=== PATIENT | female | born 1955 | race Caucasian/White ===

== ENCOUNTER 2018-01-29 11:49 | Emergency (ER) | payer OTHER ==
[2018-01-29 11:49] VITALS: TEMP 36.9
[2018-01-29 11:55] VITALS: O2SAT 97
[2018-01-29] MEDS ORDERED: SODIUM CHLORIDE 0.9% 1000ML 1,000 ML IV STA (11:57)
--- NOTE | 2018-01-29 12:00 | EMERGENCY ROOM VISIT NOTE ---
History Report prepared by Scribselena: Violeta Gamez Under the Supervision of: Dr. Yaniv Nguyen M.D. First contact with patient: 11:50 Chief Complaint: CARDIAC ASSESSMENT Stated Complaint: CARDIAC ASSESSMENT History of Present Illness The patient is a 62 year old white female with a past medical history of hyperlipidemia who presents to the ED with a cc of intermittent palpitations beginning 6 days [employer]. Positive productive cough with yellow mucous, chest pain, shortness of breath. Negative nausea, vomiting, diarrhea, recent sick contacts. She states she woke up at 1000 with her "heart racing", so she called EMS. She reports she took a Laxative last night, even though she had 3 BM's yesterday, and is unsure if that's related to her symptoms. She notes her doctor recently placed her on Lasix for lower extremity swelling. The patient denies any past history of DVT or PE. She admits to a history of hypertension and states she likes to take "herbal medicines" and stay "all natural". Source of History: patient Onset: 6 days [employer] Position: chest Timing: intermittent Associated Symptoms: + cough, + chest pain, + SOB, No nausea, No vomiting, No diarrhea Review of Systems See HPI for pertinent positives and negatives. A total of ten systems were reviewed and were otherwise negative. Past Medical & Surgical Medical Problems: (1) Hyperlipidemia Social History Alcohol Use: none Drug Use: none Marital Status: Housing Status: lives with family Occupation Status: retired Current/Historical Medications Scheduled Albuterol Sulf (Proventil 0.083% 2.5MG/3ML), 2.5 MG INH QID Atenolol (Tenormin), 50 MG PO QD Furosemide (Lasix), 20 MG PO DIRECTED Scheduled PRN Diazepam (Valium), 5 MG PO QID PRN for Anxiety Allergies Coded Allergies: Latex (Verified Allergy, Intermediate, blisters, 01/29/18) Morphine (Verified Allergy, Intermediate, breathing difficulty, 01/29/18) Adhesives (Verified Adverse Reaction, Mild, rash, 01/29/18) Physical Exam Vital Signs Date Time Temp Pulse Resp B/P (MAP) Pulse Ox O2 Delivery O2 Flow Rate FiO2 01/29/18 13:33 86 18 155/57 96 Room Air 01/29/18 13:01 107 18 171/94 95 Room Air 01/29/18 12:28 98 15 162/90 94 Room Air 01/29/18 12:08 107 155/113 95 Room Air 01/29/18 12:01 95 Room Air 01/29/18 12:01 116 175/90 95 Room Air 01/29/18 11:55 97 Room Air 01/29/18 11:55 123 01/29/18 11:49 36.9 126 18 214/87 96 Room Air Physical Exam GENERAL: Awake, alert, well-appearing, NAD, wearing orange tinted glasses HENT: Normocephalic, atraumatic. EYES: Normal conjunctiva. Sclera non-icteric. NECK: Supple. No nuchal rigidity. FROM. RESPIRATORY: CTAB, no rhonchi, wheezing, crackles CARDIAC: Tachycardic heart rate, regular rhythm, no MRG ABDOMEN: Soft, NTND, BS+ MSK: No chest wall TTP, no LE edema NEURO: GCS 15, CN 2-12 intact, moves all 4s on command SKIN: No rash or jaundice noted. Medical Decision & Procedures ER Provider Diagnostic Interpretation: Radiology results as stated below per my review and radiologist interpretation: CHEST ONE VIEW PORTABLE CLINICAL HISTORY: tachycardia tachycardia. Cardiac arrhythmia. COMPARISON STUDY: No previous studies for comparison. FINDINGS: The bones soft tissues and hemidiaphragms are normal. The cardiomediastinal silhouette is normal. The lungs are clear. The pulmonary vasculature is normal. IMPRESSION: Negative chest. The above report was generated using voice recognition software. It may contain grammatical, syntax or spelling errors. Electronically signed by: Joseph Thorne M.D. 01/29/2018 1:25 PM Dictated Date/Time: 01/29/2018 1:24 PM Laboratory Results 01/29/18 11:20 Red Blood Count 5.16, Mean Corpuscular Volume 81.4, Mean Corpuscular Hemoglobin 27.3, Mean Corpuscular Hemoglobin Concent 33.6, Mean Platelet Volume 9.7, Neutrophils (%) (Auto) 46.9, Lymphocytes (%) (Auto) 35.7, Monocytes (%) (Auto) 8.6, Eosinophils (%) (Auto) 8.3, Basophils (%) (Auto) 0.3, Neutrophils # (Auto) 3.10, Lymphocytes # (Auto) 2.36, Monocytes # (Auto) 0.57, Eosinophils # (Auto) 0.55, Basophils # (Auto) 0.02 01/29/18 11:20 Test 01/29/18 11:20 01/29/18 12:10 White Blood Count 6.61 K/uL (4.8-10.8) Red Blood Count 5.16 M/uL (4.2-5.4) Hemoglobin 14.1 g/dL (12.0-16.0) Hematocrit 42.0 % (37-47) Mean Corpuscular Volume 81.4 fL (80-100) Mean Corpuscular Hemoglobin 27.3 pg (25-34) Mean Corpuscular Hemoglobin Concent 33.6 g/dl (32-36) Platelet Count 187 K/uL (130-400) Mean Platelet Volume 9.7 fL (7.4-10.4) Neutrophils (%) (Auto) 46.9 % Lymphocytes (%) (Auto) 35.7 % Monocytes (%) (Auto) 8.6 % Eosinophils (%) (Auto) 8.3 % Basophils (%) (Auto) 0.3 % Neutrophils # (Auto) 3.10 K/uL (1.4-6.5) Lymphocytes # (Auto) 2.36 K/uL (1.2-3.4) Monocytes # (Auto) 0.57 K/uL (0.11-0.59) Eosinophils # (Auto) 0.55 K/uL (0-0.5) Basophils # (Auto) 0.02 K/uL (0-0.2) RDW Standard Deviation 41.0 fL (36.4-46.3) RDW Coefficient of Variation 13.6 % (11.5-14.5) Immature Granulocyte % (Auto) 0.2 % Immature Granulocyte # (Auto) 0.01 K/uL (0.00-0.02) Prothrombin Time 10.5 SECONDS (9.0-12.0) Prothromb Time International Ratio 1.0 (0.9-1.1) Activated Partial Thromboplast Time 29.9 SECONDS (21.0-31.0) Partial Thromboplastin Ratio 1.2 Anion Gap 11.0 mmol/L (3-11) Estimated GFR () 93.1 Estimated GFR (Non- 80.3 BUN/Creatinine Ratio 15.1 (10-20) Calcium Level 9.1 mg/dl (8.5-10.1) Magnesium Level 1.8 mg/dl (1.8-2.4) Total Bilirubin 0.4 mg/dl (0.2-1) Direct Bilirubin < 0.1 mg/dl (0-0.2) Aspartate Amino Transf (AST/SGOT) 16 U/L (15-37) Alanine Aminotransferase (ALT/SGPT) 26 U/L (12-78) Alkaline Phosphatase 122 U/L (45-117) Total Creatine Kinase 30 U/L (26-192) Troponin I < 0.015 ng/ml (0-0.045) Total Protein 7.2 gm/dl (6.4-8.2) Albumin 3.1 gm/dl (3.4-5.0) Lipase 94 U/L (73-393) Thyroid Stimulating Hormone (TSH) < 0.005 uIu/ml (0.300-4.500) Free Thyroxine 2.39 ng/dl (0.80-1.60) Urine Color YELLOW Urine Appearance CLEAR (CLEAR) Urine pH 5.0 (4.5-7.5) Urine Specific [place] 1.008 (1.000-1.030) Urine Protein NEG (NEG) Urine Glucose (UA) NEG (NEG) Urine Ketones NEG (NEG) Urine Occult Blood NEG (NEG) Urine Nitrite NEG (NEG) Urine Bilirubin NEG (NEG) Urine Urobilinogen NEG (NEG) Urine Leukocyte Esterase NEG (NEG) Laboratory results reviewed by me Medications Administered Medications (Trade) Dose Ordered Sig/Derek Route Start Time Stop Time Status Last Admin Dose Admin Sodium Chloride 1,000 ml @ 999 mls/hr Q1H1M STAT IV 01/29/18 11:57 01/29/18 12:57 DC 01/29/18 11:57 999 MLS/HR Atenolol (Tenormin Tab) 50 mg NOW ONCE PO 01/29/18 13:00 01/29/18 13:01 DC 01/29/18 12:58 50 MG Potassium Chloride (Klor-Con Tab) 40 meq NOW STAT PO 01/29/18 12:56 01/29/18 12:57 DC 01/29/18 13:07 40 MEQ ECG Per My Interpretation Indication: palpitations Rate (beats per minute): 121 Rhythm: sinus tachycardia Findings: other (normal intervals, normal axis, no STS changes or TWI) Change: 2nd EKG on 01/29/18: Sinus Tachycardia rate of 108, normal intervals, no STS changes or TWI. ED Course 1151: The patient was evaluated in room C9. A complete history and physical exam was performed. 1246: I reevaluated the patient. I told her that her symptoms are likely related to her thyroid. We will administer a low dose Beta suleiman and have Case Management speak with her as she does not have a current Primary Care Physician. 0130: I reevaluated the patient. She is resting comfortably. I discussed her discharge instructions and she verbalized complete understanding and agreement. Medical Decision The patient is a 62 year old white female with a past medical history of hyperlipidemia who presents to the ED with a cc of intermittent palpitations beginning earlier this week. Triage Nursing notes reviewed. The patient's presentation and history were concerning for palpitations. Differential diagnosis: Etiologies such as premature contractions, electrolyte abnormality, cardiac dysrhythmia, thyroid dysfunction, pulmonary embolism, infection, gastrointestinal, as well as others were entertained. Patient was seen and evaluated at the bedside. There are no prior records in our system. Patient did state that she has noticed that she has had some frequent palpitations. This is intermittent throughout the week. It is more prevalent today with some associated chest discomfort. Patient denies any lower extremity swelling, shortness of breath, history of DVT or PE. Patient denies any recent prolonged car or plane travel. Patient denies any antibiotic use. Patient states that she may have had a history of some thyroid dysfunction however she was taking things like kelp and other natural remedies and supplements but she has not taken those in some time. Patient does not have a primary care physician. On exam the patient does have some tachycardia. Patient does not appear volume overloaded. Patient has clear chest sounds. Less Patient did have blood work completed, EKG, troponin, BNP, TSH, electrolytes. Patient has a normal white blood cell count. Patient normal H&H not anemic less likely related to anemia. I do not believe that the patient is infected. Patient denies any infectious symptoms and has normal white blood cell count. TSH is very low and the patient does have some hypokalemia. Patient was given a dose of atenolol by mouth. I did discuss with the child support case officer for appropriate follow-up in order to follow-up on thyroid studies as well as outpatient management and treatment. I do not believe that her chest discomfort is related to ACS given the patient's nonischemic EKG and negative troponin and likely related to her hyperthyroidism. Patient has a well score of 1 given her tachycardia however again I believe this is likely to be PE given the more likely diagnosis is some hypothyroidism and possible concomitant dehydration. Patient did have mild hypokalemia which was repleted. Patient's chest x-ray was clear. Patient did tolerate her beta-suleiman without issue. Patient was given resources in order to help obtain a follow-up appointment per case management. Patient was deemed suitable for outpatient follow-up and treatment at this time. Patient was given strict follow-up, discharge, and return precautions. All questions were answered. Patient was deemed suitable for outpatient follow-up at this time. Patient agreed with the plan of care and was safely discharged home. Impression Primary Impression: Hyperthyroidism Additional Impression: Hypokalemia Scribe Attestation The scribe's documentation has been prepared under my direction and personally reviewed by me in its entirety. I confirm that the note above accurately reflects all work, treatment, procedures, and medical decision making performed by me. Departure Information Dispostion Home / Self-Care Prescriptions Atenolol (Tenormin) 50 Mg Tab 50 MG PO QD for 30 Days, #30 TAB Prov: Yaniv Nguyen M.D. 01/29/18 Referrals (PCP) Patient Instructions Beta Suleiman, Hyperthyroidism Dc, Hypokalemia Dc, My [facility] Additional Instructions Please return to the emergency department if you have worsening or recurrent symptoms not amenable to at-home treatment. Please call for a follow-up appointment with her primary care physician. Please take your medications as prescribed. If you have other concerns and/or complaints please feel free to also call your primary care physician's office or return the ED for further evaluation, management, and treatment. You were found to have an elevated blood pressure today (>120 sytolic or >90 diastolic). Per medicare guidelines, you need to follow up with this blood pressure screening with your Primary Care Physician (PCP). For a new PCP call [phone]. Please avoid stimulants. Please follow-up with a primary care physician to further discuss your thyroid. Please consider supplementing potassium in your diet. You may take 600 mg Ibuprofen every 6 hours as needed for pain with food for no more than 2 consecutive days. You may take tylenol 1000 mg every 6 hours as needed for pain. You may take motrin and tylenol separately or at the same time. Take your medications as prescribed. You have been examined and treated today on an emergency basis only. This is not a substitute for, or an effort to provide, complete comprehensive medical care. It is impossible to recognize and treat all injuries or illnesses in a single emergency department visit. It is therefore important that you follow up closely with [facility], your PCP, and/or your specialist(s). Call as soon as possible for an appointment. Thank you for your time and consideration. I look forward to speaking with you again soon. Please don't hesitate to call us if you have any questions. Problem Qualifiers
[2018-01-29 12:14] LABS: BASO % 0.3 %; BASO ABS # 0.02 K/uL (0-0.2); EOS % 8.3 %; EOS ABS # 0.55 K/uL (0-0.5); HEMOGLOBIN 14.1 g/dL (12.0-16.0); IG# 0.01 K/uL (0.00-0.02); LYMPH % 35.7 %; LYMPH ABS # 2.36 K/uL (1.2-3.4); MEAN CELL VOLUME 81.4 fL (80-100); MEAN CORPUSCULAR HEMOGLOBIN 27.3 pg (25-34); MEAN CORPUSCULAR HGB CONC 33.6 g/dl (32-36); MEAN PLATELET VOLUME 9.7 fL (7.4-10.4); MONO % 8.6 %; MONO ABS # 0.57 K/uL (0.11-0.59); NEUT % 46.9 %; PLATELET COUNT 187 K/uL (130-400); RED CELL DISTRIBUTION WIDTH CV 13.6 % (11.5-14.5); WHITE BLOOD COUNT 6.61 K/uL (4.8-10.8)
[2018-01-29 12:22] LABS: PTT PATIENT 29.9 SECONDS (21.0-31.0)
[2018-01-29 12:23] LABS: ALBUMIN 3.1 gm/dl (3.4-5.0); ALT/SGPT 26 U/L (12-78); BLOOD UREA NITROGEN 12 mg/dl (7-18); CALCIUM 9.1 mg/dl (8.5-10.1); CARBON DIOXIDE 23 mmol/L (21-32); CREATININE 0.78 mg/dl (0.60-1.20); GLUCOSE 138 mg/dl (70-99); LIPASE 94 U/L (73-393); SODIUM 141 mmol/L (136-145)
[2018-01-29 12:32] LABS: ALKALINE PHOSPHATASE 122 U/L (45-117); AST/SGOT 16 U/L (15-37); TOTAL PROTEIN 7.2 gm/dl (6.4-8.2)
[2018-01-29] MEDS ORDERED: ALBINS/ INH (12:34)
[2018-01-29] MEDS ORDERED: DIAZ-165 PO (12:34)
[2018-01-29] MEDS ORDERED: FURO-85 PO (12:34)
[2018-01-29] MEDS ORDERED: POTASSIUM CHLORIDE 20 MEQ TABCR PO STA (12:56)
[2018-01-29] MEDS ORDERED: ATEN50TA8 PO (13:08)
--- NOTE | 2018-01-29 13:26 | DIAGNOSTIC IMAGING REPORT ---
CHEST ONE VIEW PORTABLE CLINICAL HISTORY: tachycardia tachycardia. Cardiac arrhythmia. COMPARISON STUDY: No previous studies for comparison. FINDINGS: The bones soft tissues and hemidiaphragms are normal. The cardiomediastinal silhouette is normal. The lungs are clear. The pulmonary vasculature is normal. IMPRESSION: Negative chest. The above report was generated using voice recognition software. It may contain grammatical, syntax or spelling errors. Electronically signed by: Joseph Thorne M.D. 01/29/2018 1:25 PM Dictated Date/Time: 01/29/2018 1:24 PM
[2018-01-29 13:33] VITALS: BP 155/57; PULSE 86; O2SAT 96
== END 2018-01-29 13:43 | disposition home or self-care (01) ==
LOC: EDBD 11:49 → C.EDC 11:50
DX: E05.90 Thyrotoxicosis, unspecified without thyrotoxic crisis or storm (principal); E87.6 Hypokalemia; E78.5 Hyperlipidemia, unspecified; Z91.040 Latex allergy status; Z88.8 Allergy status to other drugs, medicaments and biological substances

== ENCOUNTER → 2018-02-04 | Outpatient (CLI) | payer OTHER ==
[~2018-02-04] MED LIST: ALBINS/ INH; ATEN25TA PO; ATEN50TA8 PO; CALC-393 PO; CHOL1000 PO; DIAZ-165 PO; FURO-85 PO; MAGN200T3 PO; POTA99TA PO
[2018-02-04 14:10] LABS: ALBUMIN 3.2 gm/dl (3.4-5.0); ALT/SGPT 24 U/L (12-78); AST/SGOT 14 U/L (15-37); BLOOD UREA NITROGEN 10 mg/dl (7-18); CALCIUM 9.2 mg/dl (8.5-10.1); CARBON DIOXIDE 25 mmol/L (21-32); CREATININE 0.56 mg/dl (0.60-1.20); GLUCOSE 94 mg/dl (70-99); POTASSIUM 3.6 mmol/L (3.5-5.1); SODIUM 142 mmol/L (136-145); TOTAL PROTEIN 7.3 gm/dl (6.4-8.2)
[2018-02-04 14:23] LABS: ALKALINE PHOSPHATASE 127 U/L (45-117)
== END | disposition home or self-care (01) ==
LOC: C.LABPBG 09:03
PROVIDERS: ATTEND Physician Assistant
DX: R94.6 Abnormal results of thyroid function studies (principal); R00.2 Palpitations

== ENCOUNTER 2018-02-22 10:08 | Emergency (ER) | payer OTHER ==
[~2018-02-22] VITALS: Ht 162.6 cm; Wt 86.0 kg
[~2018-02-22 10:08] MED LIST changes: -ATEN25TA PO; -CALC-393 PO; -CHOL1000 PO; -MAGN200T3 PO; -POTA99TA PO
[2018-02-22 10:11] VITALS: TEMP 36.7; Ht 162.6 cm; Wt 86.0 kg
[2018-02-22] MEDS ORDERED: CALC-393 PO (11:04)
[2018-02-22] MEDS ORDERED: POTA99TA PO (11:04)
[2018-02-22] MEDS ORDERED: MAGN200T3 PO (11:04)
[2018-02-22] MEDS ORDERED: CHOL1000 PO (11:04)
[2018-02-22 11:32] VITALS: O2SAT 96
--- NOTE | 2018-02-22 11:36 | DIAGNOSTIC IMAGING REPORT ---
CHEST 2 VIEWS ROUTINE CLINICAL HISTORY: 62 years-old Female presenting with palpitations. TECHNIQUE: PA and lateral views of the chest were obtained. COMPARISON: 01/29/2018. FINDINGS: Cardiomediastinal silhouette normal. No focal opacity. No large effusion or pneumothorax. Osseous structures normal. Upper abdomen normal. IMPRESSION: 1. No acute cardiopulmonary disease. Electronically signed by: Jacob Jaffe M.D. 02/22/2018 11:35 AM Dictated Date/Time: 02/22/2018 11:33 AM
[2018-02-22 11:39] LABS: BASO % 0.2 %; BASO ABS # 0.01 K/uL (0-0.2); EOS % 5.2 %; EOS ABS # 0.25 K/uL (0-0.5); HEMATOCRIT 42.3 % (37-47); HEMOGLOBIN 14.2 g/dL (12.0-16.0); IG# 0.01 K/uL (0.00-0.02); LYMPH % 37.5 %; LYMPH ABS # 1.82 K/uL (1.2-3.4); MEAN CELL VOLUME 81.3 fL (80-100); MEAN CORPUSCULAR HEMOGLOBIN 27.3 pg (25-34); MEAN CORPUSCULAR HGB CONC 33.6 g/dl (32-36); MONO % 10.1 %; MONO ABS # 0.49 K/uL (0.11-0.59); NEUT % 46.8 %; NEUT ABS # 2.27 K/uL (1.4-6.5); PLATELET COUNT 170 K/uL (130-400); RED CELL DISTRIBUTION WIDTH CV 12.9 % (11.5-14.5); RED CELL DISTRIBUTION WIDTH SD 38.8 fL (36.4-46.3); WHITE BLOOD COUNT 4.85 K/uL (4.8-10.8)
[2018-02-22 12:08] LABS: ALT/SGPT 28 U/L (12-78); AST/SGOT 22 U/L (15-37); BLOOD UREA NITROGEN 14 mg/dl (7-18); CALCIUM 9.3 mg/dl (8.5-10.1); CARBON DIOXIDE 27 mmol/L (21-32); CREATININE 0.58 mg/dl (0.60-1.20); GLUCOSE 93 mg/dl (70-99); SODIUM 142 mmol/L (136-145); TOTAL PROTEIN 6.7 gm/dl (6.4-8.2)
[2018-02-22 12:18] LABS: ALKALINE PHOSPHATASE 113 U/L (45-117); PHOSPHORUS 3.5 mg/dl (2.5-4.9)
[2018-02-22] MEDS ORDERED: ATEN25TA PO (12:34)
--- NOTE | 2018-02-22 12:34 | EMERGENCY ROOM VISIT NOTE ---
History Report prepared by Padmini: Raul Gary Under the Supervision of: Dr. Yaniv Nguyen M.D. First contact with patient: 10:38 Chief Complaint: OTHER COMPLAINT Stated Complaint: DIZZINESS,SHORTNESS OF BREATH,BLURRED VISION History of Present Illness The patient is a 62 year old white female with a past medical history of hyperlipidemia and hyperthyroid who presents to the ED with a cc of intermittent shortness of breath and dizziness beginning a few weeks ago. Positive blurred vision, heart palpitations, and lightheadedness. She was found to have hyperthyroidism recently and was started on medication three weeks ago. She states that her symptoms are always present right after taking her medication. Negative cough, fevers, chills. She has been on a low iodine diet. Source of History: patient Onset: A few weeks ago Quality: other (dizziness and shortness of breath) Timing: intermittent Modifying Factors (Worsening): other (Hyperthyroid medication) Associated Symptoms: No fevers, No chills, No cough Note: Positive: blurred vision and lightheadedness. Review of Systems See HPI for pertinent positives and negatives. A total of ten systems were reviewed and were otherwise negative. Past Medical & Surgical Medical Problems: (1) Hyperlipidemia Family History No pertinent family history stated. Social History Smoking Status: Never Smoker Alcohol Use: none Drug Use: none Marital Status: Housing Status: lives with family Occupation Status: retired Current/Historical Medications Scheduled Albuterol Sulf (Proventil 0.083% 2.5MG/3ML), 2.5 MG INH QID Atenolol (Tenormin), 25 MG PO BID Calcium Carbonate (Calcium), 600 MG PO DAILY Cholecalciferol (Vitamin D3), 1,000 UNITS PO DAILY Magnesium (Magnesium), 200 MG PO DAILY Potassium (Potassium), 99 MG PO DAILY Scheduled PRN Diazepam (Valium), 5 MG PO QID PRN for Anxiety Allergies Coded Allergies: Latex (Verified Allergy, Intermediate, blisters, 02/22/18) Morphine (Verified Allergy, Intermediate, breathing difficulty, 02/22/18) Adhesives (Verified Adverse Reaction, Mild, rash, 02/22/18) Physical Exam Vital Signs Date Time Temp Pulse Resp B/P (MAP) Pulse Ox O2 Delivery O2 Flow Rate FiO2 02/22/18 11:32 96 Room Air 02/22/18 11:30 76 18 159/91 02/22/18 10:30 78 02/22/18 10:11 36.7 76 18 168/73 98 Room Air Physical Exam GENERAL: Awake, alert, well-appearing, NAD. Wearing sunglasses. HENT: Normocephalic, atraumatic. EYES: Normal conjunctiva. Sclera non-icteric. NECK: Supple. No nuchal rigidity. FROM. RESPIRATORY: CTAB, no rhonchi, wheezing, crackles CARDIAC: RRR, no MRG ABDOMEN: Soft, NTND, BS+ MSK: No chest wall TTP, no LE edema NEURO: GCS 15, CN 2-12 intact, moves all 4s on command SKIN: No rash or jaundice noted. Medical Decision & Procedures ER Provider Diagnostic Interpretation: Radiology results as stated below per my review and radiologist interpretation: CHEST 2 VIEWS ROUTINE FINDINGS: Cardiomediastinal silhouette normal. No focal opacity. No large effusion or pneumothorax. Osseous structures normal. Upper abdomen normal. IMPRESSION: 1. No acute cardiopulmonary disease. Electronically signed by: Jacob Jaffe M.D. 02/22/2018 11:35 AM Laboratory Results 02/22/18 11:10 Red Blood Count 5.20, Mean Corpuscular Volume 81.3, Mean Corpuscular Hemoglobin 27.3, Mean Corpuscular Hemoglobin Concent 33.6, Mean Platelet Volume 10.0, Neutrophils (%) (Auto) 46.8, Lymphocytes (%) (Auto) 37.5, Monocytes (%) (Auto) 10.1, Eosinophils (%) (Auto) 5.2, Basophils (%) (Auto) 0.2, Neutrophils # (Auto ) 2.27, Lymphocytes # (Auto) 1.82, Monocytes # (Auto) 0.49, Eosinophils # (Auto ) 0.25, Basophils # (Auto) 0.01 02/22/18 11:10 Test 02/22/18 11:10 White Blood Count 4.85 K/uL (4.8-10.8) Red Blood Count 5.20 M/uL (4.2-5.4) Hemoglobin 14.2 g/dL (12.0-16.0) Hematocrit 42.3 % (37-47) Mean Corpuscular Volume 81.3 fL (80-100) Mean Corpuscular Hemoglobin 27.3 pg (25-34) Mean Corpuscular Hemoglobin Concent 33.6 g/dl (32-36) Platelet Count 170 K/uL (130-400) Mean Platelet Volume 10.0 fL (7.4-10.4) Neutrophils (%) (Auto) 46.8 % Lymphocytes (%) (Auto) 37.5 % Monocytes (%) (Auto) 10.1 % Eosinophils (%) (Auto) 5.2 % Basophils (%) (Auto) 0.2 % Neutrophils # (Auto) 2.27 K/uL (1.4-6.5) Lymphocytes # (Auto) 1.82 K/uL (1.2-3.4) Monocytes # (Auto) 0.49 K/uL (0.11-0.59) Eosinophils # (Auto) 0.25 K/uL (0-0.5) Basophils # (Auto) 0.01 K/uL (0-0.2) RDW Standard Deviation 38.8 fL (36.4-46.3) RDW Coefficient of Variation 12.9 % (11.5-14.5) Immature Granulocyte % (Auto) 0.2 % Immature Granulocyte # (Auto) 0.01 K/uL (0.00-0.02) Anion Gap 8.0 mmol/L (3-11) Est Creatinine Clear Calc Drug Dose 104.0 ml/min Estimated GFR () 112.9 Estimated GFR (Non- 97.4 BUN/Creatinine Ratio 24.1 (10-20) Calcium Level 9.3 mg/dl (8.5-10.1) Phosphorus Level 3.5 mg/dl (2.5-4.9) Magnesium Level 2.1 mg/dl (1.8-2.4) Total Bilirubin 0.5 mg/dl (0.2-1) Direct Bilirubin 0.1 mg/dl (0-0.2) Aspartate Amino Transf (AST/SGOT) 22 U/L (15-37) Alanine Aminotransferase (ALT/SGPT) 28 U/L (12-78) Alkaline Phosphatase 113 U/L (45-117) Total Protein 6.7 gm/dl (6.4-8.2) Albumin 3.0 gm/dl (3.4-5.0) Thyroid Stimulating Hormone (TSH) < 0.005 uIu/ml (0.300-4.500) Laboratory results reviewed by me ECG Per My Interpretation Indication: SOB/dyspnea Rate (beats per minute): 74 Rhythm: sinus rhythm Findings: 1st degree AV block, other (Normal axis. No STS changes or TWI. ) ED Course 1047: The patient was evaluated in room B5. A complete history and physical exam was performed. 1245: I reevaluated the patient. Discussed results and discharge instructions: she verbalized understanding and agreement. The patient is ready for discharge. Medical Decision The patient is a 62 year old white female with a past medical history of hyperlipidemia and hyperthyroid who presents to the ED with a cc of shortness of breath and dizziness with taking medication for hyperthyroidism. Differential diagnosis: Etiologies such as premature contractions, electrolyte abnormality, cardiac dysrhythmia, thyroid dysfunction, pulmonary embolism, infection, gastrointestinal, as well as others were entertained. Patient was seen and evaluated the bedside. Patient does have an issue with a low TSH but elevated thyroid hormones. Patient was seen last month and was prescribed atenolol. Patient was also seen by primary care physician his clinic notes were reviewed. They did recommend continuing a low iodine diet and continued atenolol use. Patient has been symptomatic primarily after taking her medication. I did discuss the patient's medication with the your pharmacist recommended that we cut the dose in half but give it twice daily. Patient was informed of this and told to take her medication at 25 mg twice daily as opposed to 50 mg once daily. Patient was told to continue to follow- up with her PCP and continue her low iodine diet. Patient's other blood work was fairly unremarkable. Patient's EKG was nonischemic. Patient was deemed suitable for outpatient follow-up and discharge. Patient was given strict follow-up, discharge, and return precautions. All questions were answered. Patient was deemed suitable for outpatient follow-up at this time. Patient agreed with the plan of care and was safely discharged home. Medication Reconcilliation Current Medication List: was personally reviewed by me Blood Pressure Screening Patient's blood pressure: Elevated blood pressure Blood pressure disposition: Referred to PCP Impression Primary Impression: Hyperthyroidism Additional Impression: Medication side effect Scribe Attestation The scribe's documentation has been prepared under my direction and personally reviewed by me in its entirety. I confirm that the note above accurately reflects all work, treatment, procedures, and medical decision making performed by me. Departure Information Dispostion Home / Self-Care Prescriptions Atenolol (TENORMIN) 25 Mg Tab 25 MG PO BID for 30 Days, #60 TAB Prov: Yaniv Nguyen M.D. 02/22/18 Referrals Drea Ann DO (PCP) Patient Instructions ED Palpitations, Hyperthyroidism Dc, My [facility] Additional Instructions Please return to the emergency department if you have worsening or recurrent symptoms not amenable to at-home treatment. Please call for a follow-up appointment with her primary care physician. Please take your medications as prescribed. If you have other concerns and/or complaints please feel free to also call your primary care physician's office or return the ED for further evaluation, management, and treatment. The medication your prescribed please cut in half and take twice daily. This would be 25 mg twice per day. You were also sent a prescription of the same to the pharmacy. You have been examined and treated today on an emergency basis only. This is not a substitute for, or an effort to provide, complete comprehensive medical care. It is impossible to recognize and treat all injuries or illnesses in a single emergency department visit. It is therefore important that you follow up closely with [facility], your PCP, and/or your specialist(s). Call as soon as possible for an appointment. Thank you for your time and consideration. I look forward to speaking with you again soon. Please don't hesitate to call us if you have any questions. Problem Qualifiers
[2018-02-22 12:58] VITALS: BP 150/80; PULSE 80; O2SAT 96
== END 2018-02-22 13:00 | disposition home or self-care (01) ==
LOC: C.EDB 10:10
DX: E05.90 Thyrotoxicosis, unspecified without thyrotoxic crisis or storm (principal); T50.905A Adverse effect of unspecified drugs, medicaments and biological substances, initial encounter; E78.5 Hyperlipidemia, unspecified; Z79.899 Other long term (current) drug therapy; Z91.040 Latex allergy status; Z88.5 Allergy status to narcotic agent; Z91.048 Other nonmedicinal substance allergy status

== ENCOUNTER → 2018-03-09 | Outpatient (CLI) | payer OTHER ==
[~2018-03-09] MED LIST changes: +ATEN25TA PO; -ATEN50TA8 PO; +CALC-393 PO; +CHOL1000 PO; -FURO-85 PO; +MAGN200T3 PO; +POTA99TA PO
[2018-03-09 18:57] LABS: BLOOD UREA NITROGEN 9 mg/dl (7-18); CALCIUM 9.1 mg/dl (8.5-10.1); CARBON DIOXIDE 28 mmol/L (21-32); CREATININE 0.71 mg/dl (0.60-1.20); GLUCOSE 95 mg/dl (70-99); POTASSIUM 4.2 mmol/L (3.5-5.1); SODIUM 141 mmol/L (136-145)
== END | disposition home or self-care (01) ==
LOC: C.LABPBG 14:50
PROVIDERS: ATTEND Physician Assistant
DX: I10 Essential (primary) hypertension (principal)

== ENCOUNTER → 2018-03-17 | Outpatient (CLI) | payer OTHER | END | disposition home or self-care (01) | LOC: C.LABPBG 14:26 | PROVIDERS: ATTEND Family Medicine | DX: E05.90 Thyrotoxicosis, unspecified without thyrotoxic crisis or storm (principal) ==

== ENCOUNTER → 2018-03-31 | Outpatient (CLI) | payer OTHER ==
[~2018-03-31] MED LIST changes: -ATEN25TA PO
== END | disposition home or self-care (01) ==
LOC: C.LABPBG 08:46
PROVIDERS: ATTEND Physician Assistant
DX: E05.90 Thyrotoxicosis, unspecified without thyrotoxic crisis or storm (principal)

== ENCOUNTER → 2018-06-09 | Outpatient (CLI) | payer OTHER | END | disposition home or self-care (01) | LOC: C.LABPBG 08:51 | PROVIDERS: ATTEND Physician Assistant | DX: E05.90 Thyrotoxicosis, unspecified without thyrotoxic crisis or storm (principal) ==

== ENCOUNTER → 2018-06-23 | Outpatient (CLI) | payer OTHER | END | disposition home or self-care (01) | LOC: C.LABPBG 11:01 | PROVIDERS: ATTEND Physician Assistant | DX: R94.6 Abnormal results of thyroid function studies (principal); E05.00 Thyrotoxicosis with diffuse goiter without thyrotoxic crisis or storm ==